=== PATIENT | female | born 1960 | race Caucasian/White ===

== ENCOUNTER 2017-05-07 12:40 | Emergency (ER) | payer SELFPAY ==
[~2017-05-07] VITALS: Ht 167.6 cm; Wt 75.0 kg
[~2017-05-07 12:40] MED LIST: ALBU.5I NEB; ALBUAER3 INH; BENA25TA3 PO; LEVO25TA4 PO; LOPE2CAP PO
[2017-05-07 12:43] VITALS: BP 136/88; PULSE 98; RESP 20; TEMP 98.7; O2SAT 92
[2017-05-07] MEDS ORDERED: MORPHINE SULFATE 4 MG/ML INJ IV PUSH ONE (13:15)
--- NOTE | 2017-05-07 13:16 | PD ---
HPI Chief Complaint: Skin Problem Time Seen by Provider: 13:06 Travel History International Travel<30 days: No Contact w/Intl Traveler<30days: No Traveled to known affect area: No History of Present Illness HPI 57-year-old female presents to emergency department requesting medical help for melanoma of the left forearm that started 6 months ago. She says she has history of melanoma to her right eyelid that was removed many years ago. Says she doesn't have insurance, financial stability, or help to receive medical care. She also states there are other new lesions to her body, specifically her scalp. This area is very painful. Denies fever. She reports new onset of recent headaches and vomiting. Last vomited yesterday. Denies chest pain. Reports shortness of breath and associates it to her COPD; says her shortness of breath is unchanged, although she states she does not have any inhalers. Denies abdominal pain. Has no medical complaints. No other modifying factors or associated signs and symptoms. PFSH Past Medical History Anemia: Yes Arthritis: Yes Asthma: Yes Cancer: Yes (COLON, EYE) Cardiovascular Problems: No Chemotherapy: Yes COPD: Yes Diabetes: No Diminished Hearing: No Endocrine: No Gastrointestinal Disorders: Yes (RECTAL CANCER (POS. POLYPS), RECTAL PROLAPSE, HX ULCERS, GERD) Genitourinary: No Hepatitis: Yes (B) Hiatal Hernia: Yes Immune Disorder: No Musculoskeletal: Yes (ARTHRITIS, BACK PAIN) Neurologic: No Psychiatric: No Reproductive: No Respiratory: Yes (COPD, nodules) Immunizations Current: No Thyroid Disease: No Ulcer: Yes Menopausal: Yes Tubal Ligation: Yes Past Surgical History Abdominal Surgery: Yes (COLON SURGERY) AICD: No Body Medical Devices: NA Eye Surgery: Yes (right eye melanoma(EXTENSIVE SURGERY)) Gynecologic Surgery: Yes (TUBAL LIGATION) Joint Replacement: No Pacemaker: No Other Surgery: Yes Social History Alcohol Use: No (FORMER) Tobacco Use: Yes Substance Use: No Allergies-Medications (Allergen,Severity, Reaction): Coded Allergies: Egg Yolk (Verified Allergy, Intermediate, 11/20/16) Ampicillin (Verified Allergy, Mild, Rash, 11/20/16) Aspirin (Verified Allergy, Unknown, SOB, 11/20/16) Codeine (Verified Allergy, Unknown, SOB, 11/20/16) Darvocet-N 100 (Verified Allergy, Unknown, SOB, 11/20/16) Nonsteroidal Anti-Inflammatory Agts (Verified Allergy, Unknown, SOB, ) HAD IBUPROFEN RECENTLY WITHOUT RXN! Penicillin (Verified Allergy, Unknown, SOB, 11/20/16) Reported Meds & Prescriptions Reported Meds & Active Scripts Active Levothyroxine (Levothyroxine Sodium) 25 Mcg Tab 25 Mcg PO DAILY Albuterol Neb (Albuterol Sulfate) 2.5 Mg/0.5 Ml Neb 2.5 Mg NEB Q6HR NEB PRN Note: The Albuterol Sulfate Inhalation Solution is concentrated and must be diluted. Read complete instructions carefully before using. Proair Hfa 8.5 GM Inh (Albuterol Sulfate) 90 Mcg/Act Aer 2 Puff INH Q6H PRN 108 mcg/actuation Review of Systems Except as stated in HPI: all other systems reviewed are Neg Physical Exam Narrative GENERAL: Well-nourished, well-developed female patient, in no acute distress; afebrile, nontoxic-appearing; tearful SKIN: Warm and dry. Approximately 2-1/2-3 cm in diameter, large, raised multicolored and black, raised lump to left forearm that is without surrounding erythema, edema, drainage; tender to palpation. Left upper extremity is supple and non-tense with 2+ radial pulse and sensory intact and without erythema or edema. Dry, scaly, flesh-colored lesions noted to the frontal scalp; there is without erythema, edema, drainage. HEAD: Atraumatic. Normocephalic. EYES: Pupils equal and round. No scleral icterus. No injection or drainage. ENT: Mucosa pink and moist. Airway patent. NECK: Trachea midline. CARDIOVASCULAR: Regular rate. RESPIRATORY: No accessory muscle use. GASTROINTESTINAL: Rounded. MUSCULOSKELETAL: No obvious deformities. No clubbing. No cyanosis. No edema. NEUROLOGICAL: Awake and alert. Oriented 3. No obvious cranial nerve deficits. Motor grossly within normal limits. Normal speech. PSYCHIATRIC: Appropriate mood and affect; insight and judgment normal. Data Data Last Documented VS Vital Signs Date Time Temp Pulse Resp B/P Pulse Ox O2 Delivery O2 Flow Rate FiO2 05/07/17 12:43 98.7 98 20 136/88 92 Room Air Orders Morphine Inj (Morphine Inj) (05/07/17 13:15) Complete Blood Count With Diff (05/07/17 13:13) Comprehensive Metabolic Panel (05/07/17 13:13) Act Partial Throm Time (Ptt) (05/07/17 13:13) Prothrombin Time / Inr (Pt) (05/07/17 13:13) Chest, Single Ap (05/07/17 ) Mri Brain W&W/O Contrast (05/07/17 ) MDM Medical Decision Making Medical Screen Exam Complete: Yes Emergency Medical Condition: Yes Medical Record Reviewed: Yes Differential Diagnosis Malignant melanoma, metastatic cancer, basal cell carcinoma, headache, vomiting Narrative Course 57-year-old female with approximately 2 and half to 3 cm raised lump to her left forearm that is multicolored and black, and appears to be a form of skin cancer. Patient has history of malignant melanoma and colon cancer. She recently had onset of headaches and vomiting. Denies history of headaches. The patient is afebrile and nontoxic-appearing. 1315: I spoke with Dr. Lee, my attending physician, and he recommends for the patient to be moved to medical bed for further evaluation and treatment. Dr. Lee entered orders. Patient moved to medical bed. See Dr. Lee's note for further treatment, evaluation, and final patient disposition. Leslie Junior May 07, 2017 13:16
[2017-05-07 13:49] LABS: AUTOMATED NEUTROPHIL # 4.5 TH/MM3 (1.8-7.7); BASOPHIL % 0.4 % (0.0-2.0); EOSINOPHIL # 0.1 TH/MM3 (0-0.4); HEMATOCRIT 41.3 % (35.0-46.0); HEMO FLAGS DIFF FINAL; LYMPH % 34.3 % (9.0-44.0); LYMPHOCYTE # 2.8 TH/MM3 (1.0-4.8); MEAN CELL VOLUME 88.7 FL (80.0-100.0); MEAN CORPUSCULAR HEMOGLOBIN 29.3 PG (27.0-34.0); MONO % 8.9 % (0.0-8.0); NEUT % 55.4 % (16.0-70.0); PLATELET COUNT 214 TH/MM3 (150-450); RED BLOOD COUNT 4.66 MIL/MM3 (4.00-5.30); RED CELL DISTRIBUTION WIDTH 12.3 % (11.6-17.2); WHITE BLOOD COUNT 8.1 TH/MM3 (4.0-11.0)
[2017-05-07 13:57] LABS: APTT (PATIENT) 26.6 SEC (24.3-30.1); PROTHROMBIN TIME - PATIENT 11.4 SEC (9.8-11.6)
[2017-05-07 14:12] LABS: ANION GAP 8 MEQ/L (5-15); AST (GOT) 18 U/L (15-37); BICARBONATE 23.3 MEQ/L (21.0-32.0); BLOOD UREA NITROGEN 9 MG/DL (7-18); CHLORIDE 106 MEQ/L (98-107); GLOMERULAR FILTRATION RATE 63 ML/MIN (>89); POTASSIUM 3.9 MEQ/L (3.5-5.1); SODIUM (NA) 137 MEQ/L (136-145)
[2017-05-07 14:13] LABS: ALT (GPT) 18 U/L (10-53)
[2017-05-07 14:15] LABS: ALKALINE PHOSPHATASE 63 U/L (45-117); TOTAL BILIRUBIN ADULT 0.4 MG/DL (0.2-1.0)
--- NOTE | 2017-05-07 14:26 | RADRPT ---
EXAM DATE/TIME: 05/07/2017 13:31 [facility] COMPARISON: CT ABDOMEN & PELVIS W CONTRAST, June 27, 2015, 16:54. CHEST SINGLE AP, September 07, 2014, 18:55. INDICATIONS : Shortness of breath. MEDICAL HISTORY : Chronic obstructive pulmonary disease. Carcinoma, rectal. SURGICAL HISTORY : ENCOUNTER: Initial ACUITY: 2 weeks PAIN SCORE: 0/10 LOCATION: Bilateral chest FINDINGS: Minimal streakiness is noted within the right lung base consistent with atelectasis and/or fibrotic s carring. The left lung is clear. The heart is normal. Degenerative changes are noted throughout the thoracic spine. CONCLUSION: Minimal right basilar streakiness consistent with atelectasis and/or fibrotic scarring. Riley Asher MD on May 07, 2017 at 14:19 Board Certified Radiologist. This report was verified electronically.
[2017-05-07 15:33] VITALS: BP 108/71; PULSE 80; RESP 16; O2SAT 100
[2017-05-07 17:38] VITALS: PULSE 66; RESP 16; O2SAT 98
[2017-05-07] MEDS ORDERED: GADODIAMIDE PF 287 MG/ML 5 ML VIAL (for RAD MRI) IV ONE (18:04)
--- NOTE | 2017-05-07 18:24 | RADRPT ---
EXAM DATE/TIME: 05/07/2017 17:54 [facility] COMPARISON: CT BRAIN W/O CONTRAST, September 07, 2014, 19:35. INDICATIONS : Melanoma and colon cancer with headache for one week. CONTRAST: 15 cc Omniscan (gadodiamide) IV MEDICAL HISTORY : Carcinoma, colon. Melanoma. SURGICAL HISTORY : Tubal ligation. Right eye melanoma removed. ENCOUNTER: Initial ACUITY: 1 day PAIN SCORE: 7/10 LOCATION: Head. TECHNIQUE: Multiplanar, multisequence MRI of the brain was performed both prior to and following the administrat ion of paramagnetic contrast. FINDINGS: CEREBRUM: The ventricles are normal for age. No evidence of midline shift, mass lesion, hemorrhage or acute in farction. No extraaxial fluid collections are seen. The pituitary gland and suprasellar cistern are normal in configuration. WHITE MATTER: No significant signal abnormalities are seen in the white matter. POSTERIOR FOSSA: The cerebellum and brainstem are intact. The 4th ventricle is midline. The cerebellopontine angle is unremarkable. The cerebellar tonsils are normal in position. DIFFUSION IMAGING: No focal areas of restricted diffusion are seen. No evidence of acute infarction. EXTRACRANIAL: The visualized portions of the orbits and paranasal sinuses are unremarkable. POST-CONTRAST: No abnormal areas of parenchymal or dural enhancement. No evidence of blood-brain barrier breakdown. CONCLUSION: Unremarkable exam with no evidence of mass or metastatic disease. Jb Godoy MD on May 07, 2017 at 18:18 Board Certified Radiologist. This report was verified electronically.
--- NOTE | 2017-05-07 18:55 | PD ---
Physical Exam Date Seen by Provider: May 07, 2017 Narrative The patient was signed out to me at 5 PM pending MRI of her brain. The patient presented with a lesion on her left arm which is suspicious for cancerous. She was also complaining with a headache. Therefore an MRI had been ordered to rule out brain metastasis. The patient reports that she has no insurance and has no doctor. Data Data Last Documented VS Vital Signs Date Time Temp Pulse Resp B/P Pulse Ox O2 Delivery O2 Flow Rate FiO2 05/07/17 17:38 66 16 98 Room Air 05/07/17 15:33 108/71 05/07/17 12:43 98.7 Orders Morphine Inj (Morphine Inj) (05/07/17 13:15) Complete Blood Count With Diff (05/07/17 13:13) Comprehensive Metabolic Panel (05/07/17 13:13) Act Partial Throm Time (Ptt) (05/07/17 13:13) Prothrombin Time / Inr (Pt) (05/07/17 13:13) Chest, Single Ap (05/07/17 ) Mri Brain W&W/O Contrast (05/07/17 ) Gadodiamide Pf Inj (Omniscan Pf Inj) (05/07/17 18:04) Labs Laboratory Tests Test 05/07/17 13:30 White Blood Count 8.1 TH/MM3 Red Blood Count 4.66 MIL/MM3 Hemoglobin 13.6 GM/DL Hematocrit 41.3 % Mean Corpuscular Volume 88.7 FL Mean Corpuscular Hemoglobin 29.3 PG Mean Corpuscular Hemoglobin 33.0 % Concent Red Cell Distribution Width 12.3 % Platelet Count 214 TH/MM3 Mean Platelet Volume 9.7 FL Neutrophils (%) (Auto) 55.4 % Lymphocytes (%) (Auto) 34.3 % Monocytes (%) (Auto) 8.9 % Eosinophils (%) (Auto) 1.0 % Basophils (%) (Auto) 0.4 % Neutrophils # (Auto) 4.5 TH/MM3 Lymphocytes # (Auto) 2.8 TH/MM3 Monocytes # (Auto) 0.7 TH/MM3 Eosinophils # (Auto) 0.1 TH/MM3 Basophils # (Auto) 0.0 TH/MM3 CBC Comment DIFF FINAL Differential Comment Prothrombin Time 11.4 SEC Prothromb Time International 1.0 RATIO Ratio Activated Partial 26.6 SEC Thromboplast Time Sodium Level 137 MEQ/L Potassium Level 3.9 MEQ/L Chloride Level 106 MEQ/L Carbon Dioxide Level 23.3 MEQ/L Anion Gap 8 MEQ/L Blood Urea Nitrogen 9 MG/DL Creatinine 0.91 MG/DL Estimat Glomerular Filtration 63 ML/MIN Rate Random Glucose 88 MG/DL Calcium Level 9.6 MG/DL Total Bilirubin 0.4 MG/DL Aspartate Amino Transf 18 U/L (AST/SGOT) Alanine Aminotransferase 18 U/L (ALT/SGPT) Alkaline Phosphatase 63 U/L Total Protein 8.3 GM/DL Albumin 4.1 GM/DL MDM Supervised Visit with [facility]: No Narrative Course MRI of the brain is negative. The patient will be given a mandatory referral to surgery for the lesion on her left forearm. Diagnosis Primary Impression: Skin lesion of left arm Additional Impression: Headache Qualified Code: R51 - Acute nonintractable headache, unspecified headache type Referrals: Prosper Valerio MD Patient Instructions: Basal Cell Carcinoma (DC), General Instructions Disposition: 01 DISCHARGE HOME Condition: Stable Carla Roldan MD May 07, 2017 18:55
[2017-05-07 19:16] VITALS: BP 123/78
== END 2017-05-07 19:45 | disposition home or self-care (01) ==
LOC: NEPD 12:40
DX: R51 Headache (principal); L98.9 Disorder of the skin and subcutaneous tissue, unspecified; D64.9 Anemia, unspecified; J44.9 Chronic obstructive pulmonary disease, unspecified; M13.80 Other specified arthritis, unspecified site; B19.10 Unspecified viral hepatitis B without hepatic coma; Z79.51 Long term (current) use of inhaled steroids; Z79.899 Other long term (current) drug therapy; Z88.6 Allergy status to analgesic agent
CPT/HCPCS: 70553; 71010; 80053; 85025; 85610; 85730; 96374; 99285; A9579; J2270

== ENCOUNTER → 2017-06-22 | Outpatient (CLI) | payer OTHER ==
[~2017-06-22] MED LIST changes: +ADVA250A INH; -BENA25TA3 PO; -LOPE2CAP PO
== END ==
LOC: CLAB 12:41
PROVIDERS: ATTEND Family Medicine
DX: L98.9 Disorder of the skin and subcutaneous tissue, unspecified (principal); E03.9 Hypothyroidism, unspecified; F17.201 Nicotine dependence, unspecified, in remission; Z85.820 Personal history of malignant melanoma of skin
CPT/HCPCS: 36415; 84443

== ENCOUNTER → 2017-07-03 | Outpatient (CLI) | payer OTHER ==
[2017-07-03 10:12] LABS: AUTOMATED NEUTROPHIL # 3.8 TH/MM3 (1.8-7.7); BASOPHIL % 0.5 % (0.0-2.0); EOSINOPHIL # 0.1 TH/MM3 (0-0.4); HEMATOCRIT 37.1 % (35.0-46.0); HEMO FLAGS DIFF FINAL; LYMPH % 29.5 % (9.0-44.0); MEAN CELL VOLUME 90.4 FL (80.0-100.0); MEAN CORPUSCULAR HEMOGLOBIN 30.2 PG (27.0-34.0); MEAN CORPUSCULAR HGB CONC 33.4 % (32.0-36.0); MONO % 11.4 % (0.0-8.0); NEUT % 56.6 % (16.0-70.0); PLATELET COUNT 225 TH/MM3 (150-450); RED CELL DISTRIBUTION WIDTH 13.4 % (11.6-17.2); WHITE BLOOD COUNT 6.8 TH/MM3 (4.0-11.0)
[2017-07-03 11:05] LABS: ANION GAP 9 MEQ/L (5-15); AST (GOT) 13 U/L (15-37); BICARBONATE 22.2 MEQ/L (21.0-32.0); BLOOD UREA NITROGEN 10 MG/DL (7-18); CHLORIDE 104 MEQ/L (98-107); GLOMERULAR FILTRATION RATE 74 ML/MIN (>89); GLUCOSE,FASTING 81 MG/DL (74-99); POTASSIUM 3.8 MEQ/L (3.5-5.1); SODIUM (NA) 135 MEQ/L (136-145)
[2017-07-03 11:06] LABS: ALT (GPT) 16 U/L (10-53)
[2017-07-03 11:09] LABS: ALKALINE PHOSPHATASE 54 U/L (45-117); HDL CHOLESTEROL 36.2 MG/DL (40.0-60.0); LDL CHOLESTEROL 132 MG/DL (0-99); TOTAL BILIRUBIN ADULT 0.3 MG/DL (0.2-1.0)
== END ==
LOC: CLAB 09:16
PROVIDERS: ATTEND Family Medicine
DX: L98.9 Disorder of the skin and subcutaneous tissue, unspecified (principal); E03.9 Hypothyroidism, unspecified; F17.201 Nicotine dependence, unspecified, in remission; Z85.820 Personal history of malignant melanoma of skin
CPT/HCPCS: 36415; 80053; 80061; 85025

== ENCOUNTER → 2017-07-14 | Day surgery (SDC) | payer OTHER ==
[~2017-07-14] MED LIST changes: +ACETAMINOPHEN 1000 MG/100 ML 100 ML IV ONE; +BUPIVACAINE/EPINEPHRINE 0.5% PF 10 ML VIAL ONE; +LACTATED RINGER'S 1000 ML INJ 1,000 ML ONE; +LIDOCAINE 1%/EPINEPHrine 1:200,000 PF SOLN 30 ML VIAL ONE; +MIDAZOLAM HCL 2 MG/2 ML VIAL ONE; +ONDANSETRON HCL 4 MG/2 ML VIAL IV PUSH ONE; +PROPOFOL 200 MG/20 ML AMP IV ONE; +SODIUM CHLOR 0.9% 250 ML INJ 250 ML IV ONE; +VANCOMYCIN HCL 1000 MG VIAL ONE
--- NOTE | 2017-07-14 08:59 | TN ---
cc: BLANE CRAWFORD MD, JOSEPH D. M.D. DATE OF SURGERY: 07/14/2017 PREOPERATIVE DIAGNOSIS Large skin lesion, probable skin cancer, left upper extremity, 6 x 4 cm. POSTOPERATIVE DIAGNOSIS Large skin lesion, probable skin cancer, left upper extremity, 6 x 4 cm. PROCEDURE Wide excision creating a defect 9 x 7 cm, elliptical incision. Primary closure of part of wound Placement of skin graft 2 x 4 cm to close remaining defect. ANESTHESIA General. SURGEON Dr. Valerio. INDICATION This is a pleasant 57-year-old female who has a large left skin lesion that measures approximately 6 x 4 cm. This is most likely a skin cancer. Plan is for wide excision. FINDINGS After wide excision we mobilized as much tissue as we could. We could not close the defect completely and for this reason a full-thickness skin graft was obtained from the extremity to close the remaining 2 x 4 cm defect. DETAILS OF PROCEDURE The patient was taken to the operating room and placed in the supine position. After anesthesia her left upper extremity is prepped with Betadine all the way down to the fingertips and draped. She is given preoperative antibiotics. A timeout is done. We make an elliptical incision after anesthetizing the skin lesion in a horizontal fashion as this appears to be the area where I can close most of the defect. An elliptical incision is made creating a defect 9 x 7 cm. The offending lesion is removed all the way to the deep subcutaneous tissue and marked with a stitch at the 12 o'clock position for pathologic orientation. After this was done we then close the medial and lateral edges of the skin defect with 3-0 Vicryl in the deep layer and a mixture of 3-0 and 4-0 nylon. However, the defect could not be closed completely even with undermining about 4 cm proximal and 4 cm distally and 2 cm in the medial and lateral direction. The remaining defect is then covered with a full-thickness skin graft taken from the inner aspect of the upper extremity by making an elliptical incision a little bit more than 2 x 4 cm. This elliptical incision is closed with a running 3-0 nylon. The full-thickness skin graft is then removed of all fatty tissue. I then secured the skin graft with 4-0 Vicryl and 4-0 nylon suture to cover the defect completely. Sterile gauze is applied. We did place some Xeroform gauze over the skin graft. Sterile bandage is applied. The patient tolerated the procedure well and had no immediate post-op complication. Prosper Valerio MD JDB/DOROTHY /8:40 AM /8:47 AM THU
== END | disposition home or self-care (01) ==
LOC: ESDC 07:03
PROVIDERS: ATTEND Surgery
DX: C44.629 Squamous cell carcinoma of skin of left upper limb, including shoulder (principal)
CPT/HCPCS: 00400; 11606; 15220; 88305; J0131; J2250; J2405; J3010; J3370; J7050; J7120